=== PATIENT | female | born 1960 | race Two or more races ===

== ENCOUNTER 2016-10-17 22:58 | Emergency (ER) | payer OTHER ==
[~2016-10-17] VITALS: Ht 149.9 cm; Wt 60.8 kg
[2016-10-17] MEDS ORDERED: LORAZEPAM INJ 2 MG/ML VIAL ONE (23:13)
[2016-10-17] MEDS ORDERED: LORAZEPAM INJ 2 MG/ML VIAL IV ONE (23:30)
[2016-10-18 00:01] VITALS: BP 110/64
== END 2016-10-18 00:01 | disposition home or self-care (01) ==
LOC: ER 22:58
DX: F41.9 Anxiety disorder, unspecified (principal); M19.90 Unspecified osteoarthritis, unspecified site; Z98.890 Other specified postprocedural states
CPT/HCPCS: A4606; J2060; Z7610